=== PATIENT | male | born 1960 | race Caucasian/White ===

== ENCOUNTER → 2016-11-11 05:57 | Day surgery (SDC) | payer MEDICARE, MEDICAID ==
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
[~2016-11-11 05:57] MED LIST: Buffered Lidocaine 0.9% SYRIN* 5 ML/SYR SYRINGE INTRADERM ONE; Buffered Lidocaine 0.9% SYRIN* 5 ML/SYR SYRINGE ONE; Bupivacaine 0.5% SDV PF* 30 ML VIAL ONE; Famotidine IV* 10 MG/ML 2 ML (20 mg) IV ONE; Famotidine IV* 10 MG/ML 2 ML (20 mg) ONE; KETAMINE HCL* 50 MG/ML 10 ML VIAL ONE; Lidocaine 2% PF * 5 ML VIAL ONE; Lidocaine 2% PF* 10 ML AMP ONE; Midazolam* 1 MG/ML 5 ML VIAL (5 MG) ONE; Morphine INJ* 2 MG/ML 1 ML CARPUJECT IV PRN; Ondansetron INJ* 2 MG/ML VIAL ONE; PROCHLORPERAZINE INJ 5 MG/ML 2 ML VIAL IV PRN; Propofol* 10 MG/ML 20 ML BTL IV PUSH ONE; Scopolamine 1.5 mg* PATCH TRANSDERM PRN; Scopolomine PATCH Remove* 1 NOTE MISC PATCH OFF ONE; ceFAZolin 2 GM PREMIX (*) 50 ML IVPB ONE; fentaNYL* 50 MCG/ML 2 ML VIAL (100 MCG VIAL) IV PRN; fentaNYL* 50 MCG/ML 2 ML VIAL (100 MCG VIAL) ONE; oxyCODONE/Acetamin 5/325 MG* TAB PO PRN
[2016-11-11 09:18] VITALS: BP 148/88
--- NOTE | 2016-11-11 20:10 | RAD ---
CPT II Codes: 6045F INDICATION: Removal of left ankle hardware. TECHNIQUE: Intraoperative fluoroscopy was provided during hardware removal. FINDINGS: A spot film depicts a single screw spanning the distal left tibia and fibula. Fluoroscopy time: 10.3 seconds IMPRESSION: As above.
--- NOTE | 2016-11-12 02:54 | OP ---
DATE OF OPERATION: 11/11/16 [facility] DATE OF : 58 ATTENDING SURGEON: Jatinder Stover MD. MARINE ANIMAL TRAINER: Cheryl Atkinson PA-C. ANESTHESIOLOGIST: Jorge Alberto Wen MD ANESTHESIA: MAC PRE-OP DIAGNOSIS: Painful retained hardware, left bimalleolar ankle fracture. POST-OP DIAGNOSIS: Painful retained hardware, left bimalleolar ankle fracture. OPERATIVE PROCEDURE: Removal of hardware, left bimalleolar ankle. DESCRIPTION OF PROCEDURE: The patient was taken to the operating room where a lateral longitudinal incision was made over the distal fibula plate. We used electrocautery to expose the screw heads where the screw and the plate were removed with a small fragment screwdriver. This wound was then closed with 2-0 Vicryl and ashley for the skin. We traced the previous oblique incision over the medial malleolus and identified the prominent screw, which was removed with the small fragment screw roll off driver but the second screw was buried, was identified with the image intensifier and then a small hook osteotome used to open the cortex so that we could retrieve the screw. This wound also was closed with some Vicryl and some nylon sutures. A compression dressing was then applied. [id number]/CPS #: [id number] MTDD
== END | disposition home or self-care (01) ==
LOC: OR 05:57
PROVIDERS: ATTEND Orthopaedic Surgery
DX: T84.84XA Pain due to internal orthopedic prosthetic devices, implants and grafts, initial encounter (principal); Y83.1 Surgical operation with implant of artificial internal device as the cause of abnormal reaction of the patient, or of later complication, without mention of misadventure at the time of the procedure; S82.842S Displaced bimalleolar fracture of left lower leg, sequela; V29.9XXS Motorcycle rider (driver) (passenger) injured in unspecified traffic accident, sequela
CPT/HCPCS: 76000; 88300; J0690; J2001; J2250; J2405; J2704; J3010

== ENCOUNTER 2018-12-24 13:09 | Observation (INO) | payer MEDICARE, MEDICAID ==
--- NOTE | 2018-12-24 14:08 | ED ---
Dizziness - HPI Summary HPI Summary: 58 year old M presenting to [facility] accompanied by female sanitation manager complains of persistent dizziness described as light headed and room spinning aggravated by movement and change in position since yesterday morning. Was unable to get out of bed yesterday. Reports chills/diaphoresis and intermittent sharp headache x1 day. No headache currently. Dizziness described as light headed and room spinning currently. Reports difficultly urinating x1 week. States he feels urgency to urinate but has little urine output. States his urine is dark and tea -colored. No hx jaundice. Patient denies fever, erythema of eyes, sore throat, muffled hearing, ear ache, chest pain, shortness of breath, cough, abdominal pain, nausea/vomiting/diarrhea, dysuria, hematuria, myalgia, edema, rash. Symptoms alleviated by nothing. Admits to drinking alcohol every other day. No hx alcohol withdrawal. No recent URI or sinus infection. Hx epilepsy for which he takes Tegretol, Dilantin, and clonazepam. - History Of Current Complaint Chief Complaint: EDDizziness Stated Complaint: DIZZY PER PT Hx Obtained From: Patient Onset/Duration: Still Present Timing: Constant Aggravating Factor(s): Position Change, Change In Head Position, Other - movement Alleviating Factor(s): Nothing Associated Signs And Symptoms: Positive: Negative - fever, erythema of eyes, sore throat, muffled hearing, ear ache, chest pain, shortness of breath, cough, abdominal pain, nausea/vomiting/diarrhea, dysuria, hematuria, myalgia, edema, rash, Other: - chills, diaphoresis, headache, difficulty urinating, urinary urgency, little urine output, dark urine - Allergies/Home Medications Allergies/Adverse Reactions: Allergies Allergy/AdvReac Type Severity Reaction Status Date / Time bupropion [From Wellbutrin] Allergy Seizure Verified 12/24/18 13:22 Home Medications: Home Medications Folic Acid TAB* [Folvite TAB*] 1 mg PO DAILY 12/24/18 [History Confirmed ] Ibuprofen TAB* [Motrin TAB* 800 MG] 200 mg PO Q8H PRN 12/24/18 [History Confirmed 12/24/18] Ketoconazole 2 % CREAM (NF) [Nizoral 2% CREAM (NF)] 1 applic TOPICAL BID [History Confirmed 12/24/18] Multivitamins/Minerals TAB* [Theragran/minerals TAB*] 1 tab PO DAILY 12/24/18 [ History Confirmed 12/24/18] Naproxen Sodium [Naproxen ER 500 MG TAB] 500 mg PO BID 12/24/18 [History Confirmed 12/24/18] Phenytoin CAP(*) [Dilantin CAP(*)] 400 mg PO EVERY OTHER DAY 12/24/18 [History Confirmed 12/24/18] Phenytoin CAP(*) [Dilantin CAP(*)] 500 mg PO EVERY OTHER DAY 12/24/18 [History Confirmed 12/24/18] carBAMazepine TAB(*) [TEGretol TAB(*)] 1,000 mg PO BID 12/24/18 [History Confirmed 12/24/18] clonazePAM TAB(*) [KlonoPIN TAB(*)] 1 - 2 mg PO BEDTIME 12/24/18 [History Confirmed 12/24/18] PMH/Surg Hx/FS Hx/Imm Hx GI History: Reports: Other GI Disorders - HERNIA ON LEFT SIDE Musculoskeletal History: Reports: Other Musculoskeletal History - OSTEOPENIA Sensory History: Reports: Hx Cataracts - RIGHT EYE, Hx Contacts or Glasses - GLASSES, Hx Glaucoma - SURGICALLY REPAIRED [place] Denies: Hx Hearing Aid Opthamlomology History: Reports: Hx Cataracts - RIGHT EYE, Hx Contacts or Glasses - GLASSES, Hx Glaucoma - SURGICALLY REPAIRED [place] Neurological History: Reports: Hx Seizures - TEMPERAL LOBE EPILEPSY, LAST SEIZURE 2010, Other Neuro Impairments/Disorders - PT. 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 RIGHT EYE LENSE IMPLANT, 2003, [facility] [place]. LEFT FOOT, PLATE AND SCREWS 1993, [place]. LEFT INGUINAL HERNIA REPAIR [facility] [place] DR. ZAVALA 2015 Hx Anesthesia Reactions: No - Immunization History Immunizations Up to Date: Yes Infectious Disease History: No Infectious Disease History: Denies: Traveled Outside the [place] in Last 30 Days - Family History Known Family History: Positive: Other - Blood clots (mother) - Social History Alcohol Use: Weekly Alcohol Amount: WINE Hx Substance Use: Yes Substance Use Type: Reports: Marijuana Substance Use Comment - Amount & Last Used: daily Hx Tobacco Use: No Smoking Status (MU): Never Smoked Tobacco Have You Smoked in the Last Year: No Review of Systems Positive: Chills, Skin Diaphoresis. Negative: Fever Negative: Sore Throat Negative: Chest Pain Negative: Shortness Of Breath, Cough Negative: Abdominal Pain, Vomiting, Nausea Positive: other - difficulty urinating, urinary urgency, little urine output, dark urine. Negative: dysuria, hematuria Negative: Myalgia, Edema Negative: Rash Neurological: Other - Dizziness Positive: Headache All Other Systems Reviewed And Are Negative: Yes Physical Exam - Summary Physical Exam Summary: Constitutional: Well-developed, Well-nourished, Alert. (-) Distressed Skin: Warm, Dry HENT: Normocephalic; Atraumatic. TMs are normal bilaterally Eyes: Conjunctiva normal Neck: Musculoskeletal ROM normal neck. (-) JVD, (-) Stridor, (-) Tracheal deviation Cardio: Rhythm regular, rate normal, Heart sounds normal; Intact distal pulses; The pedal pulses are 2+ and symmetric. Radial pulses are 2+ and symmetric. (-) Murmur Pulmonary/Chest wall: Effort normal. (-) Respiratory distress, (-) Wheezes, (-) Rales Abd: Soft. (-) Tenderness, (-) Distension, (-) Guarding, (-) Rebound Musculoskeletal: (-) Edema Lymph: (-) Cervical adenopathy Neuro: Alert, Oriented x3, Strength normal, Cranial nerves II-XII are grossly intact. (-) Dysmetria, (-) Nystagmus, (-) Ataxia by finger to nose testing, (-) Sensory deficit. Psych: Mood and affect Normal GCS: 15 Triage Information Reviewed: Yes Vital Signs On Initial Exam: Initial Vitals Temp Pulse Resp BP Pulse Ox 98.3 F 79 16 131/76 98 12/24/18 13:18 12/24/18 13:18 12/24/18 13:18 12/24/18 13:18 12/24/18 13:18 Vital Signs Reviewed: Yes Procedures - Sedation Patient Received Moderate/Deep Sedation with Procedure: No Diagnostics - Vital Signs Vital Signs Temp Pulse Resp BP Pulse Ox 12/24/18 13:18 98.3 F 79 16 131/76 98 - Laboratory Result Diagrams: 12/24/18 14:31 12/24/18 14:31 Lab Statement: Any lab studies that have been ordered have been reviewed, and results considered in the medical decision making process. - CT Brain CT Interpretation Completed By: Radiologist Summary of CT Findings: NO EVIDENCE FOR ACUTE INTRACRANIAL ABNORMALITY. ED physician has reviewed this report. - EKG 1420 Cardiac Rate: NL - 69 BPM EKG Rhythm: Sinus Rhythm Re-Evaluation - Re-Evaluation First Eval Re-Evaluation Time: 17:18 Comment: Christo-Hallpike and supine roll test are negative. gait is unsteady. Romberg test is negative Dizzy Course/Dx - Course Course Of Treatment: 58 year old M complains of persistent dizziness described as light headed and room spinning aggravated by movement and change in position , chills/diaphoresis, intermittent headache since yesterday morning. No headache currently. Dizziness described as light headed and room spinning currently. Reports difficultly urinating, urinary urgency, little urine output, dark urine x1 week. Physical exam findings: unremarkable. Bloodwork results with no significant abnormalities except for Hct 41, MCH 32, MPV 7.2. Urinalysis results with no significant abnormalities except for blood 1+, RBC 2+ , squamous epithelial cells. Toxicology results with no significant abnormalities except for valproic acid <13.0. EKG shows NSR [address] Brain shows, per radiologist: NO EVIDENCE FOR ACUTE INTRACRANIAL ABNORMALITY. Upon re -examination, [place]-Hallpike and supine roll test are negative. Gait is unsteady. Romberg test is negative. Dr. Barnes, hospitalist, agrees to admit patient. Spoke with Dr. Lynn, neurology, who agrees to consult. - Diagnoses Provider Diagnoses: Vertigo, Posterior circulation stroke - Provider Notifications Discussed Care Of Patient With: Ivone Barnes Time Discussed With Above Provider: 17:24 Instructed by Provider To: Other - 17:43 Dr. Lynn, neurology, agrees to consult Discharge ED - Sign-Out/Discharge Documenting (check all that apply): Patient Departure - Admit - Discharge Plan Condition: Stable Disposition: ADMITTED TO [facility] Referrals: Beny Hercules FREIGHT BROKER [Primary Care Provider] - - Attestation Statements Document Initiated by Scribe: Yes Documenting Scribe: Bebe Hernandez Provider For Whom Scribe is Documenting (Include Credential): Tony Hernandez MD Scribe Attestation: Bebe Amato, scribed for Tony Hernandez MD on 12/24/18 at 1746. Status of Scribe Document: Ready
[2018-12-24 14:41] LABS: ABS Eosinophils 0.1 10^3/ul (0-0.6); ABS Lymphocytes 1.3 10^3/ul (1.0-4.8); ABS Monocytes 0.4 10^3/ul (0-0.8); ABS Neutrophils 3.9 10^3/ul (1.5-7.7); Eosinophil % 2.2 %; Hematocrit 41 % (42-52); Lymphocyte % 22.4 %; Mean Corpuscular HGB Conc 34 g/dL (31-36); Mean Corpuscular Hemoglobin 32 pg (27-31); Mean Corpuscular Volume 94 fL (80-94); Mean Platelet Volume 7.2 fL (7.4-10.4); Nucleated Red Blood Cells % 0.1; Platelet Count 382 10^3/uL (150-450); Red Blood Count 4.37 10^6 /uL (4.18-5.48); Red Cell Distribution Width 14 % (10-15); White Blood Count 5.8 10^3/uL (3.5-10.8)
[2018-12-24 15:01] LABS: Albumin 4.1 g/dL (3.2-5.2); Albumin/Globulin Ratio 1.7 (1-3); BUN/Creatinine Ratio 15.7 (8-20); Calcium 9.5 mg/dL (8.6-10.3); EGFR African American 114.7 (>60); EGFR Non-African American 94.8 (>60); Globulin 2.4 g/dL (2-4); Potassium 3.8 mmol/L (3.5-5.0); Total Bilirubin 0.3 mg/dL (0.2-1.0); Total Protein 6.5 g/dL (6.4-8.9)
[2018-12-24 15:26] LABS: Alcohol < 10 mg/dL (<10); Carbamazepine 4.8 mcg/mL (4.0-12.0)
[2018-12-24 15:41] LABS: TSH (Thyroid Stimulating Horm) 2.83 mcIU/mL (0.34-5.60)
[2018-12-24 16:07] LABS: Urine Appearance Clear; Urine Bacteria Absent (Absent); Urine Bilirubin Negative (Negative); Urine Blood 1+ (Negative); Urine Color Yellow; Urine Glucose Negative (Negative); Urine Ketones Negative (Negative); Urine Nitrite Negative (Negative); Urine Protein Negative (Negative); Urine Red Blood Cell 2+(6-10/hpf) (Absent); Urine Specific Gravity 1.021 (1.010-1.030); Urine Squamous Epithelial Cell Present (Absent); Urine Urobilinogen Negative (Negative); Urine White Blood Cell Trace(0-5/hpf) (Absent)
[2018-12-24] MEDS ORDERED: Magnesium Hydroxide LIQ* 30 ML UDC PO PRN (17:46)
[2018-12-24] MEDS ORDERED: Ondansetron INJ* 2 MG/ML VIAL IV PRN (17:46)
[2018-12-24] MEDS ORDERED: Acetaminophen TAB* 325 MG PO PRN (17:46)
[2018-12-24] MEDS ORDERED: cefTRIAXone(*) 1 GM in NS 0.9% 50 ML* 50 ML IVPB ONE (17:50)
[2018-12-24] MEDS ORDERED: Meclizine TAB* 12.5 MG PO PRN (17:51)
[2018-12-24] MEDS ORDERED: Ibuprofen TAB* 800 MG PO PRN (18:00)
[2018-12-24] MEDS ORDERED: cefTRIAXone(*) 1 GM in NS 0.9% 50 ML* 50 ML IVPB SCH (20:00)
[2018-12-24] MEDS: Aspirin EC TAB* 81 MG TAB.EC PO SCH (20:33)
[2018-12-24] MEDS: carBAMazepine ER TAB(*) 200 MG PO SCH (20:41)
[2018-12-24] MEDS ORDERED: clonazePAM TAB(*) 1 MG PO SCH (21:00)
[2018-12-24] MEDS ORDERED: Phenytoin CAP(*) 100 MG CAP.ER PO SCH (21:00)
--- NOTE | 2018-12-24 21:28 | HP ---
CC: Beny Hercules NP; Dr. Peggy Lynn * ADMISSION HISTORY AND PHYSICAL: DATE OF ADMISSION: 12/24/18 PRIMARY CARE PROVIDER: Beny Hercules NP. NEUROLOGY: Dr. Peggy Lynn. ATTENDING FOR THIS ADMISSION: Dr. Ivone Barnes.* (DICTATED BY LAVINIA MOORE NP) HISTORY OF PRESENT ILLNESS: Mr. Barrett is a very pleasant 58-year-old male patient with a past medical history of epilepsy who presents to the emergency department today with complaints of dizziness. Per the patient's report, he woke up yesterday morning feeling that the room is spinning. Also had some cold sweats and some feelings of nausea. The patient stated that he was so dizzy, in fact, that he had to crawl on the floor to the bathroom for fear of falling over. The patient stated that throughout the day he did feel that his symptoms somewhat improved, but for the most part all day long he felt that he was just not doing well. He did manage to have some p.o. intake yesterday, which made him feel nauseous, but he did not vomit. He said he was tolerating meals and fluids. He went to sleep last night and woke up this morning, still feeling the same way. The patient states that his symptoms were not as severe as they were yesterday, but was still difficult enough for him to function that his significant other stated that he should come to the emergency department for evaluation. In the ED, the patient did not have greatly altered laboratories. He did have some mild hematuria. He had also complained of some dysuria, some darkened urine, and also difficulty with urination, but otherwise a CT of the head was performed to rule out acute CVA, which was negative. Hospitalists have been requested to evaluate the patient for admission. PAST MEDICAL HISTORY: Seizures. PAST SURGICAL HISTORY: Significant for ORIF of the left ankle with removal of hardware, also an eye surgery in the past. ALLERGIES: To WELLBUTRIN, which caused seizure disorder. FAMILY HISTORY: His mother is alive and well in her late 70s and in good health with no acute health issues. Father at age 49 of a veno-occlusive disease. No further reported family history. SOCIAL HISTORY: The patient does not smoke tobacco and has never. He drinks alcohol socially. He does smoke marijuana frequently and states that it calms his nerves. The patient's healthcare proxy is his significant other, Lavinia Wylie. CODE STATUS: He is a full code. REVIEW OF SYSTEMS: The patient currently endorses mild headache. He still feels dizzy, but it has improved. He is denying any sweats at this time, but did have them subjectively when he was at home. He denies any shortness of breath or chest pain. He does have intermittent nausea, but no vomiting. He does endorse urinary complaints, dysuria, and noticed some dark urine. No arthralgias or myalgias and no further constitutional complaints. Rest of his 14-point review of systems is negative. PHYSICAL EXAMINATION GENERAL: The patient is alert and in no acute distress, well appearing, well nourished. VITAL SIGNS: Blood pressure 125/78, heart rate 79, respiratory rate 23, O2 saturation 97% on room air with a temperature of 98.3. HEENT: The patient is atraumatic, normocephalic. PERRLA. Nonicteric sclerae. Extraocular movements are intact. He does have slight nystagmus with right upward gaze. Oral mucosa is dry. Tongue is midline. NECK: Supple, nontender. No JVD noted. No carotid bruits auscultated. LUNGS: Clear bilaterally to auscultation with no wheezing, rhonchi, or rales. CARDIOVASCULAR: S1, S2 present. No murmurs, gallops, or rubs are noted. Rate and rhythm are regular. ABDOMEN: Soft, nontender, nondistended. Positive bowel sounds in all 4 quadrants. No organomegaly appreciated. GENITOURINARY: Deferred. MUSCULOSKELETAL: There is no clubbing, no cyanosis, no pedal edema. He has +2 distal pulses palpable. Gross motor and sensation are intact. NEUROLOGIC: Grossly intact with no focal deficits. PSYCHIATRIC: He is cooperative. Alert and oriented x3 and appropriate. DIAGNOSTIC STUDIES/LAB DATA: Laboratories: WBCs 5.8, RBCs 4.37, hemoglobin 14.0, hematocrit 41, MCV 94, MCH 32, MCHC 34, platelets 382. Sodium 138, potassium 3.8, chloride 103, CO2 of 31, BUN 13, creatinine 0.83, GFR 94.8, glucose 100, lactic acid 0.8, calcium 9.5, magnesium 2.0. Total bilirubin 0.30 , AST 16, ALT 16, alk phos 87. Troponin 0.00. Total protein 6.5, albumin 4.1, globulin 2.4, albumin-globulin ratio 1.7. TSH 2.83. Urinalysis shows 1+ blood, negative for nitrites, trace wbc's, 2+ rbc's, squamous epithelial cells are present. Toxicology: Valproic acid is less than 13, carbamazepine level is 4.8. Serum alcohol less than 10. Imaging: CT of the brain shows no evidence for acute intracranial abnormality. EKG shows regular sinus rhythm, no acute ST-segment changes. IMPRESSION: Mr. Barrett is a 58-year-old male patient with history of seizure disorder who presents in the emergency department today with persistent dizziness lasting more than 24 hours being admitted to observation. DIAGNOSES AND PLAN: 1. Persistent dizziness. At this time, CT of the head is negative. The emergency room physician has reached out to Dr. Lynn for recommendations. We will order an MRI of the head to rule out any issues concerning for acute infarct. I have ordered carotid Dopplers. At this time, I will hold off on echo or CTA pending recommendations from neurology. The patient's exam is really nonfocal. He does not present with a unilateral weakness and my impression at this time is really that more of a benign positional vertigo. I have ordered a dose of Antivert for him to see if this helps. Considering his nausea and other symptoms, I am considering that benign paroxysmal positional vertigo be higher on the differential. I will give him a dose of baby aspirin, however, and we will review the rest of his imaging when that is available. The patient will also be placed on neuro checks every 4 hours and he has also been placed on telemetry. We will also follow his labs tomorrow. CBC and BMP have already been ordered. 2. History of seizure disorder. The patient states that he began to have epileptic seizures after taking Wellbutrin. He does see Dr. Rodriguez for this. We will continue him on his home medications, which are his Dilantin, which is 500 every other day and 400 every other day. He will receive this 400 mg dose tonight and his level is slightly low and his Tegretol 1000 two times a day. He will also be continued on his folic acid. 3. Potential urinary tract infection. The patient is having complaints of dysuria and he does have some mild hematuria on his urinalysis. We are pending urine culture. I will give him a dose of ceftriaxone now and continue that 1 g every 24 hours. 4. DVT prophylaxis. The patient is low risk. He can have SCDs. Right now, he is not ambulatory because of his dizziness, but he is still low risk. 5. Diet. Heart-healthy diet, decaf as tolerated. 6. Code status. Full code. The rest of the patient's course will be determined by further diagnostics, laboratories, and any other input from other providers as warranted during this admission. TIME SPENT: Sixty minutes on admission, greater than 50% of which has been spent [id number] with the patient developing admission plan of care. LAVINIA MOORE, MOLDER BENCH [id number]/[facility] #: [id number]
[2018-12-25 05:43] LABS: ABS Eosinophils 0.2 10^3/ul (0-0.6); ABS Monocytes 0.5 10^3/ul (0-0.8); ABS Neutrophils 3.9 10^3/ul (1.5-7.7); Eosinophil % 2.6 %; Hematocrit 42 % (42-52); Hemoglobin 14.4 g/dL (14.0-18.0); Lymphocyte % 30.5 %; Mean Corpuscular HGB Conc 34 g/dL (31-36); Mean Corpuscular Hemoglobin 32 pg (27-31); Mean Corpuscular Volume 93 fL (80-94); Mean Platelet Volume 7.7 fL (7.4-10.4); Nucleated Red Blood Cells % 0.1; Platelet Count 388 10^3/uL (150-450); Red Blood Count 4.51 10^6 /uL (4.18-5.48); Red Cell Distribution Width 14 % (10-15); White Blood Count 6.7 10^3/uL (3.5-10.8)
[2018-12-25 06:01] LABS: BUN/Creatinine Ratio 16.9 (8-20); Calcium 9.3 mg/dL (8.6-10.3); EGFR African American 114.7 (>60); EGFR Non-African American 94.8 (>60); Potassium 3.7 mmol/L (3.5-5.0)
[2018-12-25] MEDS: Aspirin EC TAB* 81 MG TAB.EC PO SCH (08:40)
[2018-12-25] MEDS: carBAMazepine ER TAB(*) 200 MG PO SCH (08:40)
[2018-12-25] MEDS ORDERED: Folic Acid TAB* 1 MG PO SCH (09:00)
[2018-12-25] MEDS ORDERED: Multivitamins/Minerals TAB PO SCH (09:00)
[2018-12-25 11:37] VITALS: BP 113/72
[2018-12-25] MEDS ORDERED: cefTRIAXone(*) 1 GM in NS 0.9% 50 ML* 50 ML IVPB SCH (14:00)
[2018-12-25 16:07] LABS: Phenytoin 15.9 mcg/mL (10-20)
--- NOTE | 2018-12-25 17:34 | CONS ---
CONSULTATION REPORT: DATE OF CONSULT: 12/25/18 CONSULTING PROVIDER: Shirley Cabrales NP REASON FOR CONSULT: Vertigo. CHIEF COMPLAINT: Dizziness. HISTORY OF PRESENT ILLNESS: Mr. Maury Barrett is a 58-year-old man who has history of Wellbutrin-induced seizures, who is on carbamazepine and phenytoin, who presented to [facility] on 12/24/18 with intermittent vertigo. The patient stated that he was in normal state on 12/22/18. He woke up on 12/23 and suddenly jumped off the bed to turn off his alarm. All of a sudden, he developed severe dizziness. He described the dizziness as a spinning sensation. The spinning sensation lasted throughout the day but it subsided when he lay down, isolated his head and closed his eyes. He felt a floating and rocking like sensation. He slept the whole day on Friday and then got up morning with the same spinning sensation. At this time, the symptoms were mild. He went to an urgent care center and was advised to go to the ER for further evaluation. The patient presented to [facility] for further workup. He denied any hearing loss, tinnitus, preceding illness, or falls. He did say that he had to crawl around the house on Friday throughout the day due to the severity of the dizziness. He has never had similar symptoms before. He has not had any change in his medications in the past. He has lost approximately 40 pounds over the last 2 years. This is semi- intentional as he states that you know he would like to be around the 160 pounds but instead he is 120 pounds. He denied any fevers or chills. He denied any night sweats. He denied any focal numbness, tingling, or weakness. He denied any double vision or swallowing difficulty. Today, the patient stated that his symptoms have significantly improved. He gets a little dizzy every time he gets up but otherwise has been feeling fine throughout the day. He has been walking around independently. PAST MEDICAL HISTORY: Seizures. PAST SURGICAL HISTORY: ORIF of the left ankle. MEDICATIONS: 1. Phenytoin 500 mg every other day and 400 mg every other day. 2. Naproxen 500 mg p.o. b.i.d. 3. Ibuprofen 200 mg p.o. every 8 hours. 4. Carbamazepine 1000 mg p.o. b.i.d. 5. Folic acid 1 mg p.o. daily. 6. Multivitamin daily. ALLERGIES: WELLBUTRIN as it cause him to have seizures. BUPROPION. FAMILY HISTORY: No family history of strokes or seizures. SOCIAL HISTORY: The patient denied any tobacco. He drinks alcohol socially. He is on disability. SEIZURE HISTORY: The patient has not had a seizure in 5 years. His first seizure was approximately 15-20 years ago. He is still taking carbamazepine and phenytoin regularly. REVIEW OF SYSTEMS: A 14-point review of systems was obtained and otherwise negative, except for what was mentioned in the HPI. PHYSICAL EXAM: Vitals: Temperature of 97.8, pulse of 78, respiratory rate of 16, oxygen saturation of 99%, blood pressure of 113/72. General: Well- nourished, well- developed, thin man, who is in good health and spirit. Head: Atraumatic, normocephalic without any obvious abnormality. Neck is supple and symmetrical with no carotid bruits. Eyes: Conjunctivae/corneas are clear. Chest: Clear to auscultation bilaterally with no wheezing or rhonchi. Cardiovascular: Regular rate and rhythm with normal S1, S2. Extremities: Normal range of motion with no cyanosis, edema, or hammertoes. Skin: No lesions or lacerations. Psych: Affect is broad, normal mood. Easy to establish rapport. Neurological Examination: Awake, alert, and oriented to person, place, time, and general circumstances. Speech and language including expression, repetition, naming, and comprehension were assessed and found to be normal. Cranial Nerves: Pupils are equal, round, and reactive to light. Extraocular muscles are intact. There is a slight fast beating nystagmus that is horizontal towards the left side, specifically with end gaze. The nystagmus does improve with Thorndike-Hallpike maneuvers. Please see below for further details. Facial sensation is intact bilaterally. There is no facial asymmetry. Motor Examination: 5/5 strength in the upper and lower extremities. Reflexes 2+ throughout. Downgoing plantar responses. Coordination : Normal finger- to-nose and [id number] testing. Sensation to light touch and pinprick intact throughout. Gait: Normal stance and gait. No ataxia. I did perform the Thorndike- Hallpike maneuver multiple times. The Christo-Hallpike showed paroxysmal positional nystagmus when going towards the left that is slightly upbeating and torsional with top hole beating towards the left ear. I performed the canalith repositioning maneuver and after few times, the patient initially complained of increasing dizziness especially going towards the left side with no symptoms going to right side that slowly improved. His HiNT examination is negative and Skew deviation is negative bilaterally. LABS/IMAGING/OTHER DIAGNOSTIC TESTING: WBC 6.7, hemoglobin of 14.4, hematocrit of 42, platelet count of 388. Sodium of 138, potassium is 3.7, chloride of 102. Carbon dioxide of 30. BUN of 14, creatinine 0.83. Please note that the carbamazepine level was 4.8. Phenytoin level was not checked but I did add an order for it. Carotid ultrasound was obtained on 12/25/18. It showed no hemodynamically significant stenosis. He had an initial CT of the head on 12/24/18 that showed no acute intracranial abnormalities. He had an MRI of the brain without contrast on 12/24/18 that showed no acute intracranial abnormality. No evidence of brain stem infarct. Electrocardiogram obtained on 12/24/18 showed normal sinus rhythm with a heart rate of 60 to 99. IMPRESSION AND RECOMMENDATION: Mr. Maury Barrett is a 58-year-old man with history of Wellbutrin-induced seizures, who presented to [facility] with 1-day history of positional vertigo. On physical examination, the patient had a Christo-Hallpike to the left, which showed paroxysmal position nystagmus that is upbeating and with canalith repositioning maneuvers, the symptoms and nystagmus improved significantly. He has no other focal neurological deficits. The MRI of the brain without contrast showed no evidence of a brain stem stroke , completed more than 24 hours since his onset of symptoms. However, vascular phenomenon was not a concern based of his positive Christo-Hallpike as well as his nonfocal examination. Therefore, I suspect the patient has left benign paroxysmal positional vertigo that improved almost nearly resolved with canalith repositioning maneuvers today. I have added phenytoin level as sometimes the patient may have phenytoin toxicity that can cause vertigo and nystagmus. The phenytoin level is pending at this time. The patient should follow up with Dr. Pattie Rodriguez if he has not had any recent followups. In terms of his seizures, I have asked the patient to discuss this further with Dr. Rodriguez. I do not think he does not need to be on the combination of carbamazepine and phenytoin. Given that the carbamazepine level is within the lower range of normal and he has not had a seizure within 5 years, possibly considering weaning off one of the agents and eventually weaning off both agents since the reported seizures were possibly induced by Wellbutrin. I will defer this management to Dr. Rodriguez. I have not reviewed the records, so there could be possibly other causes for his seizures and therefore that is why he is still on both seizure medications. I discussed the treatment plan with the patient. He is very happy with the hospital course and a content that he could be leaving home today. No need for physical or occupational therapy since the patient is very symptomatic. [id number]/[facility] #: [id number] WALT
[2018-12-25] MEDS ORDERED: Phenytoin CAP(*) 100 MG CAP.ER PO SCH (21:00)
[2018-12-26] MEDS ORDERED: Phenytoin CAP(*) 100 MG CAP.ER PO SCH ×2 (09:00)
--- NOTE | 2018-12-26 21:52 | DS ---
CC: Beny Hercules NP; Dr. Pattie Rodriguez * DISCHARGE SUMMARY: DATE OF ADMISSION: 12/24/18 DATE OF DISCHARGE: 12/25/18 PRIMARY CARE PROVIDER: Beny Hercules NP. ATTENDING FOR THIS DISCHARGE: Dr. Nia Allen.* (DICTATED BY LAVINIA MOORE NP) HOSPITAL COURSE: Please refer to admitting H and P on 12/24/18, but in short Mr. Barrett is a very pleasant 58-year-old male patient with a history of Wellbutrin- induced seizure disorder who presented to the emergency department with complaints of dizziness. The patient reported that the spinning started approximately 24 hours prior to his admission. He described it as the room spinning with some accompanying nausea. He also became diaphoretic at times. He was not able to take any p.o. intake. He also endorsed difficulty standing up and ambulating for fear of falling over. The patient after 24 hours felt the need to come to the emergency department for evaluation when his symptoms were not getting worse, but were not abating at all. In the emergency department, he did receive a CAT scan of the head to rule out CVA. At that time , there was some concern on the part of the emergency department for acute infarct and the ED requested admission for TIA versus CVA. His symptoms were, however, very nonfocal. We did obtain an MRI of the brain, which was negative. I did also obtain a carotid ultrasound to evaluate for any stenosis; however, the patient did respond very favorably to Antivert and Zofran. We did have a consultation with Dr. Peggy Lynn of neurology, who did perform Christo- Hallpike maneuvers on the patient, which provided relief. The patient, after 2 doses of Antivert and 2 doses of Zofran for his nausea, was able to tolerate some p.o. intake and was able to ambulate with his spinning sensation beginning to decrease and also, again with the Pandora-Hallpike maneuver, began to see some relief from his symptoms. I did have a discussion with Dr. Lynn regarding his findings and we were both in agreement that the patient was not having a TIA or CVA. He also did not appear to be having any further seizure activity, but was in fact having benign positional vertigo. The patient was cleared for discharge on 12/25/18 and he was discharged in stable condition to home. The patient was also complaining of some dysuria and hematuria. His urinalysis was completed and did show some red blood cells; however, did not have any overt signs of infection; however, with his complaints of dysuria and some burning and some frequency we did treat him with ceftriaxone. His urine culture did not reveal any bacteria. However, I did have a discussion with the patient that he should follow up as an outpatient. There is a potential that the patient is having some BPH which may be causing his dysuria. We did recommend that he have a PSA checked with his primary care provider; however, we did decide to cover him for urinary tract infection in case this was playing into some of his symptomatology as well, but the patient did state some relief of his symptoms after receiving a liter of fluid and he did respond well to ceftriaxone. DISCHARGE DIAGNOSES: 1. Benign positional vertigo. 2. History of seizure disorder, stable. 3. Dysuria with potential urinary tract infection. DISCHARGE MEDICATIONS: Include home medications: 1. Ibuprofen 200 mg 1 tablet p.o. q.8 hours as needed. 2. Multivitamin 1 tablet daily. 3. Folic acid 1 mg p.o. daily. 4. Tegretol 1000 mg p.o. b.i.d. 5. Klonopin 1 to 2 mg at bedtime as needed. 6. Dilantin 500 mg alternating with 400 mg every other day. 7. Ketoconazole cream topically b.i.d. as needed. New Medications: 1. Cefuroxime 250 mg 1 tablet p.o. b.i.d. 2. Zofran 4 mg p.o. q.6 hours orally disintegrating tablet as needed for nausea and vomiting. 3. Meclizine 25 mg p.o. q.8 hours as needed for dizziness or symptoms of vertigo. REVIEW OF SYSTEMS: On the day of discharge, the patient denied any fever, fatigue, or chills. He does endorse some mild dizziness, but no blurred vision. No current nausea or vomiting. No abdominal pains. No arthralgias or myalgias. No shortness of breath, no chest pain, and no further constitutional complaints. PHYSICAL EXAMINATION: Reveals a well-appearing gentleman, in no acute distress. Vital signs are blood pressure 113/72, heart rate 78, respiratory rate 16, O2 saturation 99% on room air with a temperature of 97.8. HEENT: The patient is atraumatic and normocephalic. Eyes: PERRLA. Nonicteric sclerae. Nystagmus that was present on admission is now resolved. Oral mucosa is moist. Tongue is midline. Neck is supple, nontender. No JVD noted. No carotid bruit auscultated. Cardiovascular: S1, S2 present. No murmurs, gallops, or rubs noted. Rate and rhythm are regular. Lungs are clear bilaterally to auscultation with no wheezing, rhonchi, or rales. Abdomen: Soft, nontender, nondistended. Positive bowel sounds in all 4 quadrants. : Deferred. Musculoskeletal: There is no clubbing, no cyanosis, no edema. He has +2 distal pulses palpable. Full range of motion and steady gait. Neurologic: Grossly intact with no focal deficits. Psychiatric: Cooperative and appropriate. DIAGNOSTIC STUDIES/LAB DATA: Laboratories: WBC 6.7, RBC 4.51, hemoglobin 14.4, hematocrit 42, platelets 388. Sodium 138, potassium 3.7, chloride 102, CO2 is 30 , BUN 14, creatinine is 0.83, GFR 94.8, glucose 86, calcium 9.3. Toxicology: Phenytoin level 15.9, valproic acid level 13.0, carbamazepine 4.8, serum alcohol less than 10. Urinalysis shows 1+ blood, 2+ rbc's, and squamous epithelial cells are present. Imaging: CT of the brain shows no acute intracranial pathology. MRI of the brain also shows no acute intracranial abnormalities. Carotid Doppler bilateral study shows no hemodynamically significant stenosis noted in either internal carotid artery. DISPOSITION: The patient was discharged to home in stable condition in the care of his significant other. FOLLOWUPS: The patient was instructed to follow up with Beny Hercules NP, his primary care provider in the next 4 to 7 days. When the patient goes back to see his PCP, he should have PSA level checked in case he is still experiencing dysuria. In the event that the patient does have BPH, he should also have followup urinalysis done to check for resolution of his hematuria. If this is persistent, he should have outpatient urology followup. He can also follow up with Dr. Pattie Rodriguez, who is his primary neurologist, as needed. I did explain to the patient that if he did have persistent vertigo that he should follow up with Dr. Rodriguez sooner rather than later to see if he would be a candidate for vestibular therapy or further treatment for vertigo if it becomes more of an issue for him. He should also see her just for routine followup for his seizure medication. Again, he did not have any seizures while he was here, but just as a routine followup he should see Dr. Rodriguez as an outpatient. Again, the patient was discharged in stable condition. All questions were answered. The patient stated understanding of his discharge instructions and followups. TIME SPENT: Thirty-five minutes on discharge planning. LAVINIA MOORE NP [id number]/[facility] #: [id number] [place]
== END 2018-12-25 15:24 | disposition home or self-care (01) ==
LOC: ED 13:09 → MEDTELE 17:46
PROVIDERS: ADMIT Internal Medicine; ATTEND Internal Medicine
DX: H81.10 Benign paroxysmal vertigo, unspecified ear (principal); R56.9 Unspecified convulsions; R30.0 Dysuria; Z79.899 Other long term (current) drug therapy; R51 Headache
CPT/HCPCS: 36415; 70450; 70551; 80048; 80053; 80156; 80164; 80185; 80320; 81003; 81015; 83605; 83735; 84443; 84484; 85025; 87086; 93005; 93880; 96365; 96366; 99283; A9270-GY; G0378; G0480; J0696